=== PATIENT | female | born 1940 | race Caucasian/White ===

== ENCOUNTER 2020-12-14 16:13 | Observation (INO) | payer MEDICARE, BC ==
[~2020-12-14] VITALS: Ht 160 cm; Wt 54.3 kg
[2020-12-14 17:27] LABS: BASO % 0 % (0-3); EOS % 0 % (0-3); HEMATOCRIT 33.5 % (36.0-47.0); HEMOGLOBIN 10.7 g/dL (12.0-15.5); LYMPH # 0.9 x10^3/uL (1.0-4.8); LYMPH % 7 % (24-48); MEAN CORPUSCULAR HEMOGLOBIN 26 pg (25-35); MEAN CORPUSCULAR HGB CONC 32 g/dL (31-37); MEAN CORPUSCULAR VOLUME 81 fL (79-100); MONO # 0.6 x10^3/uL (0.0-1.1); MONO % 5 % (0-9); NEUT # 11.5 x10^3uL (1.8-7.7); NEUT % 88 % (31-73); PLATELET COUNT 460 x10^3/uL (140-400); RED BLOOD COUNT 4.12 x10^6/uL (3.50-5.40); WHITE BLOOD COUNT 13.1 x10^3/uL (4.0-11.0)
--- NOTE | 2020-12-14 17:38 | EKG ---
[address] [address] Test Date: 2020-12-14 Test Time: 17:20:36 Pat Name: MARGARETTE LONDON Department: Room: Gender: F Service Administrator: ITZEL : 1940 Requested By: ESTRELLA BLAKE Order Number: [id number] Reading MD: Measurements Intervals [place] Rate: 85 P: 39 GA: 152 QRS: -14 QRSD: 74 T: 17 QT: 364 QTc: 433 Interpretive Statements SINUS RHYTHM LEFTWARD AXIS OTHERWISE NORMAL ECG RI6.02 No previous ECG available for comparison
[2020-12-14 17:44] LABS: ALBUMIN 2.5 g/dL (3.4-5.0); ALBUMIN/GLOBULIN RATIO 0.6 (1.0-1.7); CALCIUM 8.3 mg/dL (8.5-10.1); CREATININE 0.8 mg/dL (0.6-1.0); DIRECT BILIRUBIN 0.2 mg/dL (0.0-0.2); GFR 69.2; MAGNESIUM 1.9 mg/dL (1.8-2.4); PHOSPHORUS 3.3 mg/dL (2.6-4.7); POTASSIUM 3.6 mmol/L (3.5-5.1); TOTAL BILIRUBIN 0.5 mg/dL (0.2-1.0); TOTAL PROTEIN 6.8 g/dL (6.4-8.2)
[2020-12-14 17:47] LABS: COLOR,URINE YELLOW
[2020-12-14 17:48] LABS: BACTERIA,URINE MANY /HPF (0-FEW); BILIRUBIN,URINE SMALL (NEG); CLARITY,URINE HAZY; GLUCOSE,URINE NEG (NEG); NITRITE,URINE POS (NEG); RBC,URINE OCC /HPF (0-2); SQUAMOUS EPITHELIAL CELL,UR FEW /LPF
--- NOTE | 2020-12-14 17:48 | PHYS DOC ---
Past History Past Medical History: Hypertension, Other Additional Past Medical Histor: alzheimers, esophageal cancer, stomach cancer (BIMAL BLAKE APRN) Past Surgical History: Other Additional Past Surgical Histo: esophageal cancer removal (BIMAL BLAKE APRN) Alcohol Use: None (BIMAL BLAKE APRN) Adult General Chief Complaint Chief Complaint: WEAKNESS/GENERALIZED HPI HPI Patient is a 80-year-old female brought to the emergency department via EMS transport. 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 Limited HPI from patient related to history of severe Alzheimer's. Patient's at bedside reports patient has been having a mental decline over the past 2 weeks. Stating she is becoming more confused, not eating or drinking, having bowel and bladder incontinence, unable to ambulate self or care for self. Patient's states she has had loss of bowel and bladder control for several months but is just worse over the past 2 weeks. Patient's states that she is usually ambulatory, however he is unable to get her up out of the bed so he called 911. Patient's states that the patient takes losartan, Advair, albuterol, and Zyrtec. Patient's states the patient has an allergy to lidocaine and procaine. The patient's primary care physician is Dr. Love. The patient's states she has had no recent fever or chills, denies any other physical complaints or physical concerns for the patient. (BIMAL BLAKE APRN) Review of Systems Review of Systems 14 body systems of review of systems have been reviewed. See HPI for pertinent positives and negative responses, otherwise all other systems are negative, nonpertinent or noncontributory. (BIMAL BLAKE AUTOMOTIVE FUEL SYSTEMS CONVERTER) Allergies Allergies Allergies Coded Allergies Type Severity Reaction Last Updated Verified lidocaine Allergy Unknown 12/14/20 Yes Uncoded Allergies Type Severity Reaction Last Updated Verified NOVOCAINE Allergy Unknown 12/14/20 (BIMAL BLAKE APRN) Physical Exam Physical Exam Constitutional: Well developed, well nourished, no acute distress, non-toxic appearance. 80-year-old female in no apparent distress, has lack of eye contact, agrees to and repeats conversation. HENT: Normocephalic, atraumatic, bilateral external ears normal, oropharynx moist, no oral exudates, nose normal. Bilateral TMs within normal limits, bilateral external auditory canals within normal limits, oropharynx moist, pink, no deep tissue infectious process appreciated, no trismus, no drooling, patient speaking in normal voice tones, no lymphadenopathy appreciated of the head or neck. Eyes: PERRLA, EOMI, conjunctiva normal, no discharge. Satisfactory 6 cardinal eye movements, pupils 4 mm. Neck: Normal range of motion, no tenderness, supple, no stridor. No meningismus signs, no nuchal rigidity appreciated. Cardiovascular:Heart rate regular rhythm, no murmur, heart sounds S1-S2 to auscultation. Lungs & Thorax: Bilateral breath sounds clear to auscultation no adventitious lung sounds appreciated. Abdomen: Bowel sounds normal, soft, no tenderness, no masses, no pulsatile masses. Skin: Warm, dry, no erythema, no rash. Back: No tenderness, no CVA tenderness. Extremities: No tenderness, no cyanosis, no clubbing, ROM intact, no edema. Neurologic: Alert and oriented to self only, normal motor function, normal sensory function, no focal deficits noted. Patient is unable to stand without assistance. Psychologic: Affect normal, mood normal, patient does not make eye contact when conversing. (BIMAL BLAKE APRN) Current Patient Data Vital Signs Vital Signs Date Time Temp Pulse Resp B/P (MAP) Pulse Ox O2 Delivery O2 Flow Rate FiO2 12/14/20 16:43 97.8 68 18 148/90 (109) 100 Room Air Lab Results Laboratory Tests Test 12/14/20 17:00 White Blood Count 13.1 x10^3/uL Red Blood Count 4.12 x10^6/uL Hemoglobin 10.7 g/dL Hematocrit 33.5 % Mean Corpuscular Volume 81 fL Mean Corpuscular Hemoglobin 26 pg Mean Corpuscular Hemoglobin Concent 32 g/dL Red Cell Distribution Width 15.0 % Platelet Count 460 x10^3/uL Neutrophils (%) (Auto) 88 % Lymphocytes (%) (Auto) 7 % Monocytes (%) (Auto) 5 % Eosinophils (%) (Auto) 0 % Basophils (%) (Auto) 0 % Neutrophils # (Auto) 11.5 x10^3uL Lymphocytes # (Auto) 0.9 x10^3/uL Monocytes # (Auto) 0.6 x10^3/uL Eosinophils # (Auto) 0.0 x10^3/uL Basophils # (Auto) 0.0 x10^3/uL Urine Collection Type U cath Urine Color Yellow Urine Clarity Hazy Urine pH 5.5 Urine Specific Conrad 1.025 Urine Protein 100 mg/dl Urine Glucose (UA) Neg mg/dL Urine Ketones (Stick) 15 mg/dL Urine Blood Neg Urine Nitrite Pos Urine Bilirubin Small Urine Urobilinogen Dipstick 1.0 mg/dL Urine Leukocyte Esterase Neg Urine RBC Occ /HPF Urine WBC 1-4 /HPF Urine Squamous Epithelial Cells Few /LPF Urine Bacteria Many /HPF Sodium Level 136 mmol/L Potassium Level 3.6 mmol/L Chloride Level 98 mmol/L Carbon Dioxide Level 28 mmol/L Anion Gap 10 Blood Urea Nitrogen 22 mg/dL Creatinine 0.8 mg/dL Estimated GFR (Cockcroft-Gault) 69.2 BUN/Creatinine Ratio 28 Glucose Level 110 mg/dL Lactic Acid Level 1.2 mmol/L Calcium Level 8.3 mg/dL Phosphorus Level 3.3 mg/dL Magnesium Level 1.9 mg/dL Total Bilirubin 0.5 mg/dL Direct Bilirubin 0.2 mg/dL Aspartate Amino Transf (AST/SGOT) 26 U/L Alanine Aminotransferase (ALT/SGPT) 26 U/L Alkaline Phosphatase 140 U/L Ammonia < 10 mcmol/L Total Protein 6.8 g/dL Albumin 2.5 g/dL Albumin/Globulin Ratio 0.6 Current Medications Medications (Trade) Dose Ordered Sig/Wero Route PRN Reason Start Time Stop Time Status Last Admin Dose Admin Ondansetron HCl (Zofran) 4 mg 1X ONCE IVP 12/14/20 18:00 12/14/20 17:55 DC Sodium Chloride 1,000 ml @ 1,000 mls/hr 1X ONCE IV 12/14/20 18:00 12/14/20 18:59 12/14/20 18:00 Laboratory Tests Test 12/14/20 17:00 White Blood Count 13.1 x10^3/uL (4.0-11.0) H Red Blood Count 4.12 x10^6/uL (3.50-5.40) Hemoglobin 10.7 g/dL (12.0-15.5) L Hematocrit 33.5 % (36.0-47.0) L Mean Corpuscular Volume 81 fL (79-100) Mean Corpuscular Hemoglobin 26 pg (25-35) Mean Corpuscular Hemoglobin Concent 32 g/dL (31-37) Red Cell Distribution Width 15.0 % (11.5-14.5) H Platelet Count 460 x10^3/uL (140-400) H Neutrophils (%) (Auto) 88 % (31-73) H Lymphocytes (%) (Auto) 7 % (24-48) L Monocytes (%) (Auto) 5 % (0-9) Eosinophils (%) (Auto) 0 % (0-3) Basophils (%) (Auto) 0 % (0-3) Neutrophils # (Auto) 11.5 x10^3uL (1.8-7.7) H Lymphocytes # (Auto) 0.9 x10^3/uL (1.0-4.8) L Monocytes # (Auto) 0.6 x10^3/uL (0.0-1.1) Eosinophils # (Auto) 0.0 x10^3/uL (0.0-0.7) Basophils # (Auto) 0.0 x10^3/uL (0.0-0.2) Ammonia < 10 mcmol/L (11-34) L (BIMAL BLAKE APRN) EKG EKG EKG performed at 1720 by house respiratory therapy staff shows a normal sinus rhythm without ectopy heart rate 85 bpm, LA interval 0.152, QTc interval 0.433, no acute STEMI, no ACS, no acute ischemia appreciated, EKG interpreted by ED attending physician Dr. Bimal Saleh. (BIMAL BLAKE APRN) Radiology/Procedures Radiology/Procedures PATIENT: MARGARETTE LONDON ACCOUNT: [id number] : 1940 LOCATION: ER AGE: 80 SEX: F EXAM STATUS: REG ER ORD. PHYSICIAN: BIMAL BLAKE APRN REASON: ALTERED MENTAL STATUS PROCEDURE: PORTABLE CHEST 1V EXAM: AP View of the chest DATE: 12/14/2020 4:54 PM INDICATION: ALTERED MENTAL STATUS COMPARISON: No Prior FINDINGS: Heart is not enlarged. Aorta is tortuous. Diffuse opacification left midlung may represent focal consolidation or left lung mass. Trace left pleural effusion. No pneumothorax. IMPRESSION: Diffuse opacification left midlung may represent focal consolidation or left lung mass. This can be further assessed by CT. Electronically signed by: Rusty Pantoja MD (12/14/2020 6:55 PM) [facility] DI[facility]ATED AND SIGNED BY: RUSTY PANTOJA MD DATE: 12/14/201853 CC: BIMAL BLAKE APRN; YAMEL LOVE MD ~MTH0 0 PATIENT: MARGARETTE LONDON ACCOUNT: [id number] : 1940 LOCATION: ER AGE: 80 SEX: F EXAM STATUS: REG ER ORD. PHYSICIAN: BIMAL BLAKE APRN REASON: Confusion, altered mental status PROCEDURE: CT HEAD WO CONTRAST Exam: CT head INDICATION: Confusion TECHNIQUE: Sequential axial images through the head were obtained without the administration of IV contrast. Exposure: One or more of the following in the visualized dose reduction techniques were utilized for this examination: 1. Automated exposure control 2. Adjustment of the MA and/or KV according to patient size 3. Use of iterative of reconstructive technique Comparisons: None FINDINGS: No focal parenchymal lesion or hemorrhage is identified. There is no midline s hift or sulcal effacement. Patchy hypodensity in the periventricular white matter. No acute vascular territory infarction is identified. Mancilla-white distinction is preserved. The ventricular system is within normal limits without compression hydrocephalus . The basal cisterns are well maintained. The visualized portions of the paranasal sinuses and mastoid air cells are well-pneumatized. No acute fractures. IMPRESSION: Moderate small vessel ischemic change, technically age indeterminate without recent prior imaging. Electronically signed by: Mauricio Sanches MD (12/14/2020 7:20 PM) [facility] DICTATED AND SIGNED BY: MAURICIO SANCHES MD DATE: 12/14/201918 CC: BIMAL BLAKE APRN; YAMEL LOVE MD ~MTH0 0 (BIMAL BLAKE APRN) Heart Score C/O Chest Pain: No Risk Factors: Risk Factors: DM, Current or recent (<one month) smoker, HTN, HLP, family history of CAD, obesity. Risk Scores: Risk Factors: DM, Current or recent (<one month) smoker, HTN, HLP, family history of CAD, obesity. (BIMAL BLAKE APRN) Course & Med Decision Making Course & Med Decision Making Pertinent Labs and Imaging studies reviewed. (See chart for details) 80-year-old female, vital signs reviewed, presents emergency department for a decrease in mental status over the past 2 weeks. Patient has a long history of severe Alzheimer's, will order cath UA, CBC, BMP, magnesium, calcium, phosphorus, lactic acid reflex, ammonia level, EKG, chest x-ray, CT head. Physical examination concerning for sepsis versus urinary tract infection versus altered mental status of unknown etiology. Pending labs at this time. Patient's white blood cell count 13.1, patient's urinalysis suggestive of urinary tract infection with positive nitrites, patient's chest x-ray read by house radiologist interpretation concerning for pneumonia versus lung mass. Discussed findings with patient's and recommended admission to hospital for further evaluation. Discussed DO NOT RESUSCITATE with patient's , the patient is unable to make her own medical decisions related to her mental capacity and history of Alzheimer's disease. The patient's gave verbal understanding of DO NOT RESUSCITATE meaning in the event that his 's heart stops beating or she stops breathing he does not want any life-saving intervention. This was witnessed by ED nurse ELOISA Paul at patient's bedside. Blood cultures x2 were ordered, Called and discussed patient case with inpatient management physician Dr. Hari Mitchell who agreed to admit patient for the diagnosis of dehydration and recurrent cancer with the information he was given by me. Dr. Mitchell is aware of patient's 's wishes of DO NOT RESUSCITATE for his . Patient will be admitted to the medical surgical unit at [facility]. Dr. Mitchell requested CT angio chest in a.m., normal saline at 75 cc/h. Dr. Hari Mitchell has assumed patient care at this time. (BIMAL BLAKE APRN) Dragon Disclaimer Dragon Disclaimer This electronic medical record was generated, in whole or in part, using a voice recognition dictation system. (BIMAL BLAKE APRN) Departure Departure: Impression: Primary Impression: Dehydration Additional Impression: Recurrent cancer Disposition: ADMITTED INPATIENT Admitting Physician: Hari Mitchell (Admit to the medical surgical unit to Dr. Hari Mitchell diagnosis dehydration, recurrent cancer) (BIMAL BLAKE APRN) Condition: GUARDED Referrals: YAMEL LOVE MD (PCP) Attending Signature Attending Signature I have reviewed the PA/BOILERMAKER APPRENTICE's note and plan of care. I was available for consultation as needed during the patient's visit in the emergency department. I agree with the clinical impression, plan, and disposition. (BIMAL SALEH DO) Problem Qualifiers BIMAL BLAKE APRN December 14, 2020 17:48 BIMAL SALEH DO December 15, 2020 01:11
[2020-12-14] MEDS ORDERED: ONDANSETRON PF 4 MG/2 ML VIAL. IVP ONE (18:00)
[2020-12-14] MEDS ORDERED: IV NORMAL SALINE 1,000ML 1,000 ML IV ONE ×2 (18:00→20:00)
--- NOTE | 2020-12-14 18:58 | RAD ---
EXAM: AP View of the chest DATE: 12/14/2020 4:54 PM INDICATION: ALTERED MENTAL STATUS COMPARISON: No Prior FINDINGS: Heart is not enlarged. Aorta is tortuous. Diffuse opacification left midlung may represent focal cons olidation or left lung mass. Trace left pleural effusion. No pneumothorax. IMPRESSION: Diffuse opacification left midlung may represent focal consolidation or left lung mass. This can be f urther assessed by CT. Electronically signed by: Rusty Payton MD (12/14/2020 6:55 PM) [facility]
--- NOTE | 2020-12-14 19:23 | RAD ---
Exam: CT head INDICATION: Confusion TECHNIQUE: Sequential axial images through the head were obtained without the administration of IV co ntrast. Exposure: One or more of the following in the visualized dose reduction techniques were utilized for this examination: 1. Automated exposure control 2. Adjustment of the MA and/or KV according to patient size 3. Use of iterative of reconstructive technique Comparisons: None FINDINGS: No focal parenchymal lesion or hemorrhage is identified. There is no midline shift or sulcal effaceme nt. Patchy hypodensity in the periventricular white matter. No acute vascular territory infarction is raymond ntified. Mancilla-white distinction is preserved. The ventricular system is within normal limits without compression hydrocephalus. The basal cisterns are well maintained. The visualized portions of the paranasal sinuses and mastoid air cells are well-pneumatized. No acute fractures. IMPRESSION: Moderate small vessel ischemic change, technically age indeterminate without recent prior imaging. Electronically signed by: Mauricio Ocampo MD (12/14/2020 7:20 PM) [facility] [place]
[2020-12-14] MEDS ORDERED: AZITHROMYCIN 500 MG in IV NORMAL SALINE 250ML 250 ML IV ONE (19:45)
[2020-12-14] MEDS ORDERED: IV NORMAL SALINE 50ML 50 ML ONE (20:15)
[2020-12-14] MEDS ORDERED: AZITHROMYCIN 500 MG VIAL. IV ONE (20:15)
[2020-12-14] MEDS ORDERED: IV NORMAL SALINE 250ML 250 ML ONE (20:15)
[2020-12-14] MEDS ORDERED: cefTRIAXone SODIUM 1 GM VIAL ONE (20:15)
[2020-12-14 22:29] VITALS: BP 127/77
--- NOTE | 2020-12-14 22:30 | NUR ---
PT ADMITTED TO [facility]IA [facility] ACCOMPANIED BY NURSING SHIPWRIGHT SUPERVISOR. PT WAS ASSISTED X2 FROM GURNEY TO BED. PTS SPOUSE, SUJATHA, WAS PRESENT FOR ADMISSION QUESTIONS. PT IS ALERT TO SELF ONLY. PT WAS ASSISTED W/ EATING YOGURT AND DRINKING WATER AFTER ADMISSION WAS COMPLETE. PT IS NOW RESTING COMFORTABLY IN BED W/ BED ALARM IN PLACE.
[2020-12-15 05:31] VITALS: BP 108/68
[2020-12-15] MEDS ORDERED: IOHEXOL 350 MG/ML 100 ML VIAL. IV ONE ×2 (07:45→08:30)
[2020-12-15] MEDS ORDERED: METO10TA81 PO (08:31)
[2020-12-15] MEDS ORDERED: CETI10TA16 PO (08:31)
[2020-12-15] MEDS ORDERED: ESOM40CA PO (08:31)
[2020-12-15] MEDS ORDERED: LOSA100T14 PO (08:31)
[2020-12-15] MEDS ORDERED: ASPI-630 PO (08:33)
[2020-12-15] MEDS ORDERED: ALBU2.5V8 IH (08:33)
[2020-12-15] MEDS ORDERED: FLUT15.812 NS (08:33)
--- NOTE | 2020-12-15 09:49 | RAD ---
Site ID: [id number] EXAMINATION: CTA chest. Technique: Axial images with coronal and sagittal reconstructions with MIP technique are performed of chest with angiogram protocol. 100 mL of Isovue-300 administered intravenously. One or more of the following radiation dose reduction techniques was used: automated exposure control , adjustment of mA and/or KV according to patient size, and/or utilization of iterative reconstructio n technique. HISTORY: 80 years Female Reason: EVALUATION OF LUNG MASS /abnormal chest x-ray COMPARISON: None. FINDINGS: The pulmonary arteries are well-opacified with no filling defects to suggest pulmonary embolism. Plea se note that that there is some breathing motion artifacts which would decrease the sensitivity of de tection of a small embolus. The thoracic aorta is normal in caliber. No aneurysm or dissection. The heart size is normal. No pericardial effusion. There is small pleural effusion on the left side. There is a hypodense lesion seen posteriorly in the left lower lobe with the an air-fluid level measu ring 6. 2.5 cm concerning for lung abscess. Surrounding consolidation and atelectasis is seen. There is significant diffuse dilatation of the esophagus suggestive of achalasia. The dilated esophag us contains significant amount fluid and ingested material with the an air-fluid level. Of There is a large the diaphragmatic hernia on the left side with herniating abdominal fat and the mariela l loops into the left side of the chest extending posterior to the heart. No obvious extraluminal air or fluid collection in the hernia. Fecal material in the visualized segments of the colon may sugges t constipation. There is also a small diaphragmatic hernia on the right side posteriorly containing o nly fat. The spleen is borderline enlarged measuring 12.7 cm x 7 in maximum axial dimensions. The osseous stru ctures demonstrate degenerative changes in the mid to lower thoracic spine. IMPRESSION: 1. No PE or aortic dissection. 2. Left lower lobe fluid collection with air suggestive of lung abscess. There is surrounding consoli dation and atelectasis. 3. Diffuse dilatation of the esophagus with large amount of fluid and ingested material suggestive of motility dysfunction or achalasia. Consider possibility of the GE junction mass. 4. Large left-sided diaphragmatic hernia with abdominal fat and bowel contents herniating into the ch est Electronically signed by: Jos Nelson MD (12/15/2020 9:47 AM) [id number]
[2020-12-15 10:39] VITALS: BP 114/76
--- NOTE | 2020-12-15 12:20 | SSS ---
ADMIT DATE: 12/15/2020 SHORT STAY SUMMARY HISTORY OF PRESENT ILLNESS: The patient is a 80-year-old female patient who presented to the emergency room of [facility] with generalized weakness, poor appetite. The patient has not been eating or drinking for the last 2 weeks, she has been very weak, requires assistance with her activities of daily living. She has also recurrent bouts of cough that is constant. Her uses a Nyquil at nighttime; however, there was no nausea, no vomiting, no fever. She was evaluated in the emergency room and has had extensive investigation including lab work, imaging studies. Her lab work were mostly unremarkable except for slight elevation of white cell count of 13,000, normochromic normocytic anemia and thrombocytosis. Her chemistry surprisingly seems to be fairly well within normal range and her urinalysis also showed that positive for nitrite, it was negative for leukocyte esterase, only 1-4 ____ and many bacteria. The chest x-ray showed diffuse opacification of the left mid lung, may represents focal consolidation with left lung mass and therefore she had a CT angio of the chest, which showed there is no evidence of pulmonary embolism, aortic dissection; however, she has left lower lobe fluid collection with air suggestive of lung abscess. There is surrounding consolidation and atelectasis. She has diffuse dilatation of the esophagus with large amount of fluid and ingested material suggestive motility dysfunction or achalasia, considered the possibility of gastroesophageal junction mass, large left-sided diaphragmatic hernia with abdominal fat and bowel contents herniating into the chest. She was started on IV Zithromax and Rocephin and was admitted to [facility] with a diagnosis of dehydration and recurrent cancer, although we do not have clearcut indication for that. PAST MEDICAL HISTORY: Significant for hypertension, type 2 diabetes mellitus, hyperlipidemia, bronchial asthma, senile macular degeneration. The patient is incontinent to both bowel and bladder. She has a history of esophageal cancer that was resected and underwent surgery for that and she had also esophageal stricture for which she underwent esophageal dilatation about 7-8 times according to her ; however, he cannot remember when was the last time it was done. PAST SURGICAL HISTORY: Significant for cholecystectomy, bilateral cataract extraction, esophageal cancer, status post esophagectomy. She has right knee lateral release and esophageal dilatation about 7-8 times. ALLERGIES: SHE IS ALLERGIC TO ALL THE TEODORO, THE LIDOCAINE AND XYLOCAINE, IT CAUSE APPARENTLY SOME FORM OF ANAPHYLACTIC SHOCK. MEDICATIONS: The patient is currently on following medications that according to her has not taken for the last 2 weeks. She is on cetirizine 10 mg once a day for seasonal allergies, albuterol sulfate 2 puffs every 4-6 hours, losartan potassium 50 mg once a day, aspirin 81 mg once a day, fluticasone propionate for Flonase 2 sprays to each nostril once a day, Nexium 40 mg once a day, metoclopramide 10 mg daily. FAMILY HISTORY: She has four sisters, one older and 3 younger and the youngest has because of myocardial infarction. Both parents are . She does not have any brothers. SOCIAL HISTORY: She is , has two sons. She quit smoking about 30 years ago. She drinks a glass of wine or beer on a regular basis. 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 REVIEW OF SYSTEMS: The patient was very confused and disoriented, does not really give any useful information, although she sometimes answers question appropriately when I am asking her who was at the bedside. PHYSICAL EXAMINATION: GENERAL: When I examined her this afternoon, she looked well and was clearly in no apparent respiratory distress. She was pale, but no jaundice, cyanosis or thyromegaly. No jugular distention. No limb edema. VITAL SIGNS: Heart rate was 83, blood pressure is 114/76, temperature was 97.6, respiratory rate 20, and oxygen saturation was 96%. HEAD, EYES, EARS, NOSE, AND THROAT: Showed normocephalic and atraumatic. NECK: Supple. HEART: Showed normal first and second heart sounds, no gallop or murmur. CHEST: Clear to auscultation, no crepitation or rhonchi. ABDOMEN: Distended, soft, nontender. NEUROLOGIC: She is disoriented to time, place and person; however, all her cranial nerves intact. She moves her extremities without difficulty. She ambulates without assistance or assistive devices. LABORATORY DATA: Showed a white cell count of 13,100; hemoglobin 10.7; hematocrit 33; MCV 81 and platelet count of 160,000 with a manual differential showed 88% polymorphs, 7% lymphocytes. Her chemistry showed a serum sodium 136, potassium 3.6, chloride 98, bicarbonate 28, anion gap of 10, BUN 22, creatinine 0.8, estimated GFR was 69 mL per minute. Her glucose was 110. Lactic acid was 1.2. Calcium was 8.3, phosphorus 3.3, magnesium was 1.9. Total bilirubin, AST, ALT were normal. Alkaline phosphatase slightly elevated. Her ammonia was less than 10. Total protein 6.8, albumin was 2.5. Urinalysis showed the urine was yellow, hazy with a pH of 5.5, specific gravity 1.025, small amount of protein. The urine was negative for glucose, small amount of ketones, negative for blood, positive for nitrite. The urine was negative for leukocyte esterase, ____ and many bacteria. The patient was transferred to [facility] with a diagnoses of esophageal stricture and esophageal dilatation, possible achalasia or recurrence of esophageal cancer, left lung abscess and pneumonia, left diaphragmatic hernia. The patient also carries diagnoses of hypertension, senile macular degeneration, bladder and bowel incontinence, dementia, and bronchial asthma. ORALIA/JANUSZ DR: Monica TID: [id number]
[2020-12-15] MEDS ORDERED: AA 3%/ELECTROLYTE-TPN SOLN/GLY 1,000 ML IV SCH (12:45)
[2020-12-15 14:50] VITALS: BP 138/80
--- NOTE | 2020-12-15 17:05 | NUR ---
DISCHARGE/TRANSFER PT transferred to [facility] by Dr. Cintron for GI and Lung consults. Pt resting comfortably throughout day and no pain. Family at bedside. Pt ambulated with assist to abigail. Report given to ELOISA Paul at [facility]. IV continued for further care at [facility].
[2020-12-15] MEDS ORDERED: PIPERACILLIN/TAZOBACTAM 3.375 GM in IV NORMAL SALINE 50ML 50 ML IV SCH (18:00)
[2020-12-16] MEDS ORDERED: POTASSIUM CL 20MEQ IN 0.9%NACL 1,000 ML IV SCH (12:30)
== END 2020-12-15 16:38 | disposition short-term general hospital (02) ==
LOC: ER 16:13 → 1 SOUTH 21:18 → INTOOBSV 21:18
PROVIDERS: ADMIT Hospitalist; ATTEND Internal Medicine
DX: E86.0 Dehydration (principal); I10 Essential (primary) hypertension; E11.9 Type 2 diabetes mellitus without complications; E78.5 Hyperlipidemia, unspecified; K22.2 Esophageal obstruction; K22.8 Other specified diseases of esophagus; J85.1 Abscess of lung with pneumonia; K44.9 Diaphragmatic hernia without obstruction or gangrene; H35.30 Unspecified macular degeneration; R15.9 Full incontinence of feces; N39.498 Other specified urinary incontinence; F02.80 Dementia in other diseases classified elsewhere, unspecified severity, without behavioral disturbance, psychotic disturbance, mood disturbance, and anxiety; J45.909 Unspecified asthma, uncomplicated; J98.11 Atelectasis; G30.9 Alzheimer's disease, unspecified; Z85.01 Personal history of malignant neoplasm of esophagus; Z85.028 Personal history of other malignant neoplasm of stomach; Z87.891 Personal history of nicotine dependence; Z98.41 Cataract extraction status, right eye; Z98.42 Cataract extraction status, left eye
CPT/HCPCS: 36415; 70450; 71045; 71275; 80053; 80076; 81001; 82140; 83605; 83735; 84100; 85025; 87040; 87077; 87086; 87186; 93005; 96361; 96365; 96366; 96367; 96375; 97116; 97162; 97166; 97530; 99285; G0378; J0456; J0696; J7030; J7050; Q9967; G0379